=== PATIENT | male | born 1990 | race Caucasian/White ===

== ENCOUNTER 2018-05-13 10:04 | Emergency (ER) | payer BC, OTHER ==
[2018-05-13 11:44] VITALS: BP 135/81
[2018-05-13 11:59] LABS: Influenza A Molecular POSITIVE (Negative)
--- NOTE | 2018-05-13 12:05 | UC ---
FLU HPI - HPI Summary HPI Summary: 28 y/o male presents to the urgent care c/o nasal congestion w/ clear nasal discharge, SANCHEZ, fever, body aches and a dry cough since yesterday. Pt has fever of 102F yesterday. he took ibuprofen PO which resolved. Pain today is 3/10. Pt denies SOB, dizziness, chest pain, abdominal pain, N/v/D. Today he has not take any medications. - History of Current Complaint Chief Complaint: UCRespiratory Stated Complaint: FLU LOIKE SYMP Time Seen by Provider: 05/13/18 12:00 Hx Obtained From: Patient Onset/Duration: Gradual Onset, Lasting Days - 2 days, Still Present, Worse Since - today Severity Currently: Mild Severity Initially: Mild Pain Intensity: 3 Pain Scale Used: 0-10 Numeric Associated Signs & Symptoms: Positive: Fever, Myalgia, Cough - dry, Nasal Congestion - clear, Headache Related Hx: Possible Flu/Infectious Exposure - at work - Risk Factors Influenza Risk Factors: Negative - Allergy/Home Medications Allergies/Adverse Reactions: Allergies Allergy/AdvReac Type Severity Reaction Status Date / Time Sulfa (Sulfonamide Allergy Unknown Verified 05/13/18 11:45 Antibiotics) Reaction Details PMH/Surg Hx/FS Hx/Imm Hx Previously Healthy: Yes - Pt denies PMHX - Surgical History Surgical History: Yes Surgery Procedure, Year, and Place: WISDOM TEETH - Family History Family History: dyslipidemia - Social History Occupation: Employed Full-time Lives: With Family Alcohol Use: Occasionally Substance Use Type: None Smoking Status (MU): Never Smoked Tobacco Type: Smokeless Tobacco - Immunization History Most Recent Tetanus Shot: UNSURE Review of Systems All Other Systems Reviewed And Are Negative: Yes Constitutional: Positive: Fever, Chills, Fatigue, Other - body aches Skin: Positive: Negative Eyes: Positive: Negative ENT: Positive: Nasal Discharge - clear, Sinus Congestion Respiratory: Positive: Cough - dry Cardiovascular: Positive: Negative Gastrointestinal: Positive: Negative Genitourinary: Positive: Negative Motor: Positive: Negative Neurovascular: Positive: Negative Musculoskeletal: Positive: Myalgia Neurological: Positive: Headache Psychological: Positive: Negative Is Patient Immunocompromised?: No Physical Exam - Summary Physical Exam Summary: VITAL SIGNS: Reviewed. GENERAL: Patient is a well developed and nourished male who is sitting comfortable in the examining table. Patient is not in any acute respiratory distress. HEAD AND FACE: No signs of trauma. No ecchymosis, hematomas or skull depressions. No sinus tenderness. EYES: PERRLA, EOMI x 2, No injected conjunctiva, no nystagmus. No photophobia. EARS: Hearing grossly intact. Ear canals and tympanic membranes are within normal limits. Nose: edematous and erythematous nasal mucosa w/ clear nasal discharge. MOUTH: Positive no erythema, no tonsillar enlargement. Uvula in midline. NECK: Supple, trachea is midline, Positive anterior cervical lymphadenopathy, no JVD, no carotid bruit, no c-spine tenderness, neck with full ROM. No meningeal signs, no Kernig's or brudzinskis signs. CHEST: Symmetric, no tenderness at palpation LUNGS: Clear to auscultation bilaterally. No wheezing or crackles. CVS: Regular rate and rhythm, S1 and S2 present, no murmurs or gallops appreciated. ABDOMEN: Soft, non-tender. No signs of distention. No rebound no guarding, and no masses palpated. Bowel sounds are normal. EXTREMITIES: FROM in all major joints, no edema, no cyanosis or clubbing. NEURO: Alert and oriented x 3. No acute neurological deficits. Speech is normal and follows commands. SKIN: Dry and warm Triage Information Reviewed: Yes Vital Signs: Initial Vital Signs Temp 100.9 F 05/13/18 11:42 Pulse 96 05/13/18 11:42 Resp 18 05/13/18 11:42 BP 135/81 05/13/18 11:42 Pulse Ox 100 05/13/18 11:42 Flu Course/Dx - Course Course Of Treatment: 28 y/o male presents to the urgent care c/o nasal congestion w/ clear nasal discharge, SANCHEZ, fever, body aches and a dry cough since yesterday. Pt has fever of 102F yesterday. he took ibuprofen PO which resolved. Pain today is 3/10. Pt denies SOB, dizziness, chest pain, abdominal pain, N/v/D. Today he has not take any medications. Hx obtained. Pt febrile with URI on examination. Influenza A&B ordered: result: Influenza a positive. Pt declined Ibuprofen PO at the clinic for fever. He states he will take it as soon as he gets home. Pt Rx Tamiflu and ibuprofen PO to alleviates symptoms. Advised on hand washing and wear a mask to avoid spreading. Pt advised to rest, increase fluid intake, eat well and avoid strenuous exercise. If symptoms do not improve or worsen advised to return to the urgent care or f/u with her PCP for further evaluation and treatment. Pt understood and agreed - Differential Dx/Diagnosis Differential Diagnosis/HQI/PQRI: Bronchitis, Influenza, Pneumonia, Upper Respiratory Infection Provider Diagnosis: Influenza A, Fever Discharge - Sign-Out/Discharge Documenting (check all that apply): Patient Departure - d/C home All imaging exams completed and their final reports reviewed: No Studies - Discharge Plan Condition: Stable Disposition: HOME Prescriptions: Ibuprofen TAB* [Motrin TAB* 800 MG] 800 mg PO Q6H PRN #30 tab PRN Reason: Fever Oseltamivir CAP* [Tamiflu CAP*] 75 mg PO BID #10 cap Patient Education Materials: Influenza (ED) Forms: *Work Release Referrals: [facility] [place] [facility] REFERRAL [Outside] - 3 Days Additional Instructions: 1- Please take the full course of the antiviral to avoid resistance. Encourage hand washing and wear a mask to avoid spreading. 2-Please take Ibuprofen PO q6-8hrs prn as instructed after meals to alleviate fever, and sore throat as soon as you get home since you declined meds at the clinic. Increase fluid intake, eat well, rest and avoid strenuous exercise 3-If symptoms do not improve or worsen please return to the urgent care or f/u with your PCP in 2-3 days for further evaluation and treatment. - Billing Disposition and Condition Condition: STABLE Disposition: Home
== END 2018-05-13 12:22 | disposition home or self-care (01) ==
LOC: UCEAST 10:04
DX: J10.1 Influenza due to other identified influenza virus with other respiratory manifestations (principal); R50.9 Fever, unspecified; Z88.2 Allergy status to sulfonamides
CPT/HCPCS: 99212; G0463

== ENCOUNTER 2018-07-01 11:16 | Emergency (ER) | payer BC ==
[2018-07-01 12:08] VITALS: BP 132/84
[2018-07-01] MEDS ORDERED: Tetan/Diph/Pertus SYR(Tdap)* 0.5 ML SYR(BOOSTRIX) use SYR IM ONE (12:10)
--- NOTE | 2018-07-01 12:10 | UC ---
Laceration HPI - HPI Summary HPI Summary: 28 yo male presents with right middle finger laceration. He tells me that this morning he was fixing his lawnmower and cut his finger on the blade. He bandaged the area and came to . Unsure date of last tetanus. He is right handed. - History Of Current Complaint Chief Complaint: UCLaceration Stated Complaint: FINGER LACERATION Time Seen by Provider: 07/01/18 12:10 Hx Obtained From: Patient Laceration Location: Finger Mechanism Of Injury: Sharp Trauma Onset/Duration: Sudden Onset Severity: Mild Pain Intensity: 2 Pain Scale Used: 0-10 Numeric - Allergies/Home Medications Allergies/Adverse Reactions: Allergies Allergy/AdvReac Type Severity Reaction Status Date / Time Sulfa (Sulfonamide Allergy Unknown Verified 07/01/18 12:08 Antibiotics) Reaction Details Home Medications: Home Medications NK [No Home Medications Reported] 07/01/18 [History Confirmed 07/01/18] PMH/Surg Hx/FS Hx/Imm Hx - Additional Past Medical History Additional PMH: None - Surgical History Surgical History: Yes Surgery Procedure, Year, and Place: WISDOM TEETH - Family History Family History: dyslipidemia - Social History Occupation: Employed Full-time Lives: With Family Alcohol Use: Occasionally Substance Use Type: None Smoking Status (MU): Never Smoked Tobacco Type: Smokeless Tobacco - Immunization History Most Recent Tetanus Shot: unknown Review of Systems All Other Systems Reviewed And Are Negative: Yes Constitutional: Positive: Negative Skin: Positive: Other - Right middle finger Respiratory: Positive: Negative Cardiovascular: Positive: Negative Neurovascular: Positive: Negative Neurological: Positive: Negative Psychological: Positive: Negative Physical Exam - Summary Physical Exam Summary: GENERAL: NAD. WDWN. No pain distress. SKIN: RIGHT MIDDLE FINGER: dorsal aspect overlying PIP there is a 7mm crescent shaped laceration just through the dermis. No tendon involvement. No FB. Clean appearing. CHEST: No accessory muscle use. Breathing comfortably and in no distress. CV: Pulses intact. Cap refill <2seconds MSK: FROM at right finger MCP, PIP, and DIP with intact strength NEURO: Alert. PSYCH: Age appropriate behavior. Triage Information Reviewed: Yes Vital Signs: Initial Vital Signs Temp 97.9 F 07/01/18 12:05 Pulse 77 07/01/18 12:05 Resp 16 07/01/18 12:05 BP 132/84 07/01/18 12:05 Pulse Ox 99 07/01/18 12:05 Vital Signs Reviewed: Yes Laceration Repair - Laceration Repair 1 Laceration Size After Repair: Length (cm) - 0.7 Modified For Repair: No Type Injection: Local Anesthesia Used: 2.0% Lido Irrigation With Pressure Irrigation Device: Yes Closure Material: Sutures - #3 Closure Method: Single Layer Suture Of: Skin Suture Type: Prolene - 5-0 Laceration Course/Dx - Course/Dx Course Of Treatment: The procedure was explained to the pt and all questions were answered. A time out was performed, witnessed, and signed. The area was irrigated with 200mL sterile saline. 0.5mL of 2% lidocaine without epi was administered and good anesthetization was achieved. In the usual sterile fashion, THREE 5-0 prolene interrupted sutures were placed. The wound was bandaged with telfa. Pt tolerated procedure well. tdap updated today - Diagnosis Provider Diagnosis: Finger laceration Discharge - Sign-Out/Discharge Documenting (check all that apply): Patient Departure All imaging exams completed and their final reports reviewed: No Studies - Discharge Plan Condition: Stable Disposition: HOME Patient Education Materials: Care For Your Stitches (DC), Laceration (ED) Referrals: No Primary Care Phys,NOPCP [Primary Care Provider] - Additional Instructions: If you develop a fever, shortness of breath, chest pain, new or worsening symptoms - please call your PCP or go to the ED immediately. Your blood pressure was slightly elevated at todays visit. Please see your primary provider within 4 weeks for recheck and re-evaluation. 1) Please keep the area bandaged, clean, dry, and intact for the next 24- 48hours. 2) If you develop a fever, colored or thick discharge, increased pain or swelling - please call your PCP or go to the ED. 3) Please return in 10-12 days to have your THREE sutures removed. - Billing Disposition and Condition Condition: STABLE Disposition: Home
[2018-07-01] MEDS ORDERED: Lidocaine 2% PF * 5 ML VIAL INJ ONE (12:13)
== END 2018-07-01 12:40 | disposition home or self-care (01) ==
LOC: UCEAST 11:16
DX: S61.212A Laceration without foreign body of right middle finger without damage to nail, initial encounter (principal); W27.1XXA Contact with garden tool, initial encounter; Y92.9 Unspecified place or not applicable; Z23 Encounter for immunization; Z88.2 Allergy status to sulfonamides
CPT/HCPCS: 12001; 90471; 90715; 99211; G0010; G0463

== ENCOUNTER 2019-02-02 07:21 | Emergency (ER) | payer BC ==
[2019-02-02 07:36] VITALS: BP 135/77
--- NOTE | 2019-02-02 08:28 | UC ---
Ear Complaint HPI - HPI Summary HPI Summary: ONSET LAST NIGHT OF EAR PRESSURE AND HEAD CONGESTION. DENIES COUGH, FEVER, NAUSEA. NO SORE THROAT. - History of Current Complaint Chief Complaint: UCEar Stated Complaint: EAR PAIN, SINUS PAIN Time Seen by Provider: 02/02/19 08:14 Hx Obtained From: Patient Onset/Duration: Gradual Onset, Lasting Hours, Still Present Severity Initially: Mild Severity Currently: Mild Pain Intensity: 0 Pain Scale Used: 0-10 Numeric Aggravating Factors: Nothing Alleviating Factors: Nothing Associated Signs/Symptoms: Negative: URI Symptoms - Allergies/Home Medications Allergies/Adverse Reactions: Allergies Allergy/AdvReac Type Severity Reaction Status Date / Time Sulfa (Sulfonamide Allergy Unknown Verified 02/02/19 07:36 Antibiotics) Reaction Details PMH/Surg Hx/FS Hx/Imm Hx Previously Healthy: Yes - Surgical History Surgical History: Yes Surgery Procedure, Year, and Place: WISDOM TEETH - Family History Known Family History: Positive: Non-Contributory Family History: dyslipidemia - Social History Alcohol Use: Occasionally Substance Use Type: None Smoking Status (MU): Never Smoked Tobacco Type: Smokeless Tobacco - Immunization History Most Recent Tetanus Shot: unknown Review of Systems All Other Systems Reviewed And Are Negative: Yes Constitutional: Positive: Negative ENT: Positive: Ear Ache Respiratory: Positive: Negative Cardiovascular: Positive: Negative Gastrointestinal: Positive: Negative Physical Exam Triage Information Reviewed: Yes Appearance: Well-Appearing, No Pain Distress, Well-Nourished Vital Signs: Initial Vital Signs Temp 98.3 F 02/02/19 07:32 Pulse 74 02/02/19 07:32 Resp 16 02/02/19 07:32 BP 135/77 02/02/19 07:32 Pulse Ox 100 02/02/19 07:32 Vital Signs Reviewed: Yes Eyes: Positive: Conjunctiva Clear ENT: Positive: Hearing grossly normal, Pharynx normal, TMs normal Neck: Positive: Supple, Nontender, No Lymphadenopathy Respiratory Exam: Normal Cardiovascular Exam: Normal Abdomen Description: Positive: Soft Musculoskeletal: Positive: No Edema Neurological: Positive: Alert Psychological: Positive: Age Appropriate Behavior Skin: Negative: Rashes Ear Complaint Course/Dx - Course Course Of Treatment: PHYSICAL EXAM NORMAL TODAY. NO EVIDENCE OF EAR INFECTION OR STREP. LUNGS CLEAR. NO ACUTE INTERVENTION INDICATED TODAY. RECOMMENDED OTC MEDICATIONS. FOLLOW-UP IF NEEDED. - Differential Dx/Diagnosis Provider Diagnosis: Ear pressure Discharge ED - Sign-Out/Discharge Documenting (check all that apply): Patient Departure All imaging exams completed and their final reports reviewed: No Studies - Discharge Plan Condition: Stable Disposition: HOME Patient Education Materials: Earache (ED) Referrals: [facility] [Outside] Additional Instructions: NOTHING ON EXAM TODAY THAT INDICATES ANY BACTERIAL INFECTION REQUIRING ANTIBIOTICS. IT'S POSSIBLE YOU ARE COMING DOWN WITH A VIRAL ILLNESS. I RECOMMEND YOU TAKE AN OTC DECONGESTANT SUCH SUDAFED TO SEE IF THIS HELPS YOUR HEAD CONGESTION AND EAR PRESSURE. TAKE IBUPROFEN NEEDED FOR DISCOMFORT. STAY WELL RESTED AND HYDRATED. SEEK FOLLOW-UP IF YOUR SYMPTOMS ARE NOT IMPROVING OVER THE NEXT WEEK OR SO. CALL THE NUMBER BELOW FOR ASSISTANCE IN ESTABLISHING WITH A PCP An additional resource available to assist in finding the appropriate physician for your health care needs is the [facility] ([facility]). You may contact them by calling [phone]. - Billing Disposition and Condition Condition: STABLE Disposition: Home
== END 2019-02-02 08:35 | disposition home or self-care (01) ==
LOC: UCEAST 07:21
DX: H93.8X9 Other specified disorders of ear, unspecified ear (principal); Z88.2 Allergy status to sulfonamides
CPT/HCPCS: 99212; G0463

== ENCOUNTER 2019-06-11 15:35 | Emergency (ER) | payer BC ==
--- NOTE | 2019-06-11 15:48 | UC ---
Throat Pain/Nasal Zachary HPI - HPI Summary HPI Summary: 29 yo male presents with sore throat. He tells me that for the last 3 days he has had a sore throat and felt that his glands are swollen. He states he normally would not be concerned about this, but his has had similar symptoms for 1 month and is being tested for strep and mono and he wishes to be tested as well. He has not been taking anything OTC for his symptoms. Denies fever, chills, sinus symptoms, cough, SOB, rash, body aches, fatigue. No recent travel or exposure to known positive COVID. - History of Current Complaint Stated Complaint: SORE THROAT Time Seen by Provider: 06/11/19 15:48 Hx Obtained From: Patient Onset/Duration: Sudden Onset Severity: Mild Pain Intensity: 3 Pain Scale Used: 0-10 Numeric - Allergies/Home Medications Allergies/Adverse Reactions: Allergies Allergy/AdvReac Type Severity Reaction Status Date / Time Sulfa (Sulfonamide Allergy Unknown Verified 06/11/19 16:35 Antibiotics) Reaction Details Home Medications: Home Medications NK [No Home Medications Reported] 07/01/18 [History Confirmed 06/11/19] PMH/Surg Hx/FS Hx/Imm Hx - Additional Past Medical History Additional PMH: None - Surgical History Surgical History: Yes Surgery Procedure, Year, and Place: WISDOM TEETH - Family History Known Family History: Positive: Cardiac Disease, Hypertension - Social History Occupation: Employed Full-time Lives: With Family Alcohol Use: Occasionally Substance Use Type: None Smoking Status (MU): Never Smoked Tobacco Type: Smokeless Tobacco - Immunization History Most Recent Tetanus Shot: unknown Review of Systems All Other Systems Reviewed And Are Negative: No Constitutional: Positive: Negative Skin: Positive: Negative Eyes: Positive: Negative ENT: Positive: Sore Throat Respiratory: Positive: Negative Cardiovascular: Positive: Negative Gastrointestinal: Positive: Negative Neurological/Mental Status: Positive: Negative Psychological: Positive: Negative Physical Exam - Summary Physical Exam Summary: GENERAL: NAD. WDWN. No pain distress. SKIN: No rashes, sores, lesions, or open wounds. HEENT: Head: AT/NC Eyes: Conjunctiva clear without inflammation or discharge. Ears: Hearing grossly normal. TMs intact, no bulging, erythema, or edema. Nose: Nasal mucosa pink and moist. NTTP maxillary and frontal sinus. Throat: Posterior oropharynx mild erythema. No tonsillar enlargement. LEFT palatoglossal arch with single 1mm circular yellow exudate without definite ulceration. Uvula midline. No hoarse voice or muffled voice. NECK: Supple. Shotty anterior cervical LAD nttp. CHEST: CTAB. No r/r/w. No accessory muscle use. Breathing comfortably and in no distress. CV: RRR. Pulses intact. Cap refill <2seconds NEURO: Alert. PSYCH: Age appropriate behavior. Triage Information Reviewed: Yes Vital Signs: Vital Signs: Temp Pulse Resp BP Pulse Ox 99.2 F 70 16 148/92 98 06/11/19 16:47 06/11/19 16:47 06/11/19 16:47 06/11/19 16:47 06/11/19 16:47 Laboratory Tests 06/11/19 16:38 Group A Strep Rapid Negative Vital Signs Reviewed: Yes Throat Pain/Nasal Course/Dx - Course Course Of Treatment: POC strep negative. Lesion on left tonsil appears most consistent with aphthous stomatitis or viral exudate. Will send throat swab for full culture and treat if needed. Advised supportive care at this time. - Differential Dx/Diagnosis Provider Diagnosis: Sore throat Discharge ED - Sign-Out/Discharge Documenting (check all that apply): Patient Departure All imaging exams completed and their final reports reviewed: No Studies - Discharge Plan Condition: Stable Disposition: HOME Patient Education Materials: Pharyngitis (ED) Referrals: No Primary Care Phys,NOPCP [Primary Care Provider] - - Billing Disposition and Condition Condition: STABLE Disposition: Home
[2019-06-11 16:48] VITALS: BP 148/92
== END 2019-06-11 16:50 | disposition home or self-care (01) ==
LOC: UCEAST 15:35
DX: J02.9 Acute pharyngitis, unspecified (principal); J35.9 Chronic disease of tonsils and adenoids, unspecified; Z88.2 Allergy status to sulfonamides
CPT/HCPCS: 87070; 87651; 99211; G0463